=== PATIENT | female | born 1980 | race Two or more races ===

== ENCOUNTER 2018-09-19 16:58 | Emergency (ER) | payer BC ==
--- NOTE | 2018-09-19 17:23 | EDM.PDOC ---
ED HPI GENERAL MEDICAL PROBLEM - General Chief Complaint: Neck Problem Stated Complaint: SWOLLEN NECK Time Seen by Provider: 09/19/18 17:22 Source of Information: Reports: Patient - History of Present Illness INITIAL COMMENTS - FREE TEXT/NARRATIVE: Patient is here for evaluation of swelling to the right side of her neck 2 days. She states that initially she felt the lump and it was tender, it got larger and now over the past day has gotten smaller. She denies any dental pain or swelling. Has not been to the dentist in many years. Has not had a recent URI. Denies any ear pain. Denies any skin lesions. Overall healthy, on no medications on a regular basis. Right Neck Pain Score (Numeric/FACES): 8 - Related Data Allergies Allergy/AdvReac Type Severity Reaction Status Date / Time No Known Allergies Allergy Verified 09/19/18 17:09 Home Meds: Home Meds Amoxicillin/Clavulanate K [Augmentin 875-125 MG] 1 tab PO BID #14 tablet [Rx] Past Medical History - Past Health History Medical/Surgical History: Denies Medical/Surgical History Social & Family History - Tobacco Use Smoking Status *Q: Never Smoker - Caffeine Use Caffeine Use: Reports: Coffee, Soda - Recreational Drug Use Recreational Drug Use: No ED ROS ENT - Review of Systems Review Of Systems: See Below Constitutional: Denies: Fever, Chills, Malaise, Weakness, Decreased Appetite HEENT: Reports: Other (Denies dysphasia). Denies: Dental Pain, Ear Discharge, Ear Pain, Hearing Loss, Sinus Problem, Throat Pain, Throat Swelling Respiratory: Reports: No Symptoms Cardiovascular: Reports: No Symptoms GI/Abdominal: Reports: No Symptoms Skin: Reports: No Symptoms Neurological: Reports: No Symptoms Psychiatric: Reports: No Symptoms ED EXAM, ENT - Physical Exam Exam: See Below Exam Limited By: No Limitations General Appearance: Alert, WD/WN, No Apparent Distress Eye Exam: Bilateral Eye: Normal Inspection, PERRL Ears: Normal External Exam, Normal Canal, Hearing Grossly Normal, Normal TMs Nose: Normal Inspection Mouth/Throat: Normal Inspection, Normal Gums, Normal Oropharynx Head: Atraumatic, Normocephalic Neck: Normal Inspection, Full Range of Motion, Lymphadenopathy (R) (Enlarged lymph node to anterior cervical chain.). No: Thyromegaly Respiratory/Chest: No Respiratory Distress, Normal Breath Sounds, No Accessory Muscle Use Cardiovascular: Normal Peripheral Pulses, Regular Rate, Rhythm, No Murmur GI/Abdominal: Normal Bowel Sounds, Soft, Non-Tender Neurological: Alert, Oriented Psychiatric: Normal Affect, Normal Mood Skin: Warm, Dry, Intact Lymphatic: Adenopathy (Right cervical) Course - Vital Signs Last Recorded V/S: Last Vital Signs Temp 98.0 F 09/19/18 17:09 Pulse 90 09/19/18 17:09 Resp 16 09/19/18 17:09 BP 128/81 09/19/18 17:09 Pulse Ox 99 09/19/18 17:09 - Re-Assessments/Exams Free Text/Narrative Re-Assessment/Exam: Moderate anterior cervical lymphadenopathy on the right, thyroid is normal size , no masses noted to this. No specific etiology for the lymphadenopathy. She is not currently having any ear pain had a history of this. No obvious dental infection. Advised patient that she should have a dental checkup. Which her with Augmentin 7 days. Advised patient that the lymphadenopathy should continue to decrease in size, but not markedly improved on Friday she is to follow-up in the clinic. Certainly return to the emergency room if any worsening of symptoms or dysphasia. If that should occur, then CT soft tissue neck with contrast would be indicated. 09/19/18 19:23 Departure - Departure Time of Disposition: 17:48 Disposition: Home, Self-Care 01 Condition: Good Clinical Impression: Lymphadenopathy of head and neck - Discharge Information Prescriptions: Amoxicillin/Clavulanate K [Augmentin 875-125 MG] 1 tab PO BID #14 tablet Instructions: Lymphadenopathy Referrals: PCP,None [Primary Care Provider] - Forms: ED Department Discharge Additional Instructions: You were evaluated in the emergency department today for swelling on the right side of her neck. This is likely enlarged lymph nodes. You are to take an antibiotic twice a day for the next week. Tylenol or ibuprofen as needed for pain or discomfort. If this is not significantly improved or any worsens at all, you're to follow up in the clinic on Friday. You can schedule this by calling [phone]. Certainly for any worsening symptoms or fever greater than 101F you can return to the emergency room.
== END 2018-09-19 18:10 | disposition home or self-care (01) ==
LOC: JD.ED 16:58
DX: R59.0 Localized enlarged lymph nodes (principal)
CPT/HCPCS: 99283